=== PATIENT | male | born 1985 | race Caucasian/White ===

== ENCOUNTER 2019-11-10 07:53 | Emergency (ER) | payer BC, OTHER ==
[2019-11-10 08:27] VITALS: BP 146/96
--- NOTE | 2019-11-10 08:33 | UC ---
Throat Pain/Nasal Macario HPI - HPI Summary HPI Summary: 34-year-old male with head congestion since last evening, no fever. He did not get a flu shot in the fall. He has had diarrhea about 5 times past 24 hours. - History of Current Complaint Chief Complaint: UCGeneralIllness Stated Complaint: SINUS CONGESTION Time Seen by Provider: 11/10/19 08:14 Hx Obtained From: Patient Onset/Duration: Gradual Onset Severity: Mild Pain Intensity: 9 Cough: None Associated Signs & Symptoms: Positive: Sinus Discomfort - Allergies/Home Medications Allergies/Adverse Reactions: Allergies Allergy/AdvReac Type Severity Reaction Status Date / Time No Known Allergies Allergy Verified 11/10/19 08:27 Home Medications: Home Medications Lisinopril [Zestril] 20 mg PO DAILY 11/10/19 [History Confirmed 11/10/19] Sertraline* [Zoloft*] 10 mg PO BID 11/10/19 [History Confirmed 11/10/19] PMH/Surg Hx/FS Hx/Imm Hx Previously Healthy: Yes - Surgical History Surgical History: None - Family History Known Family History: Positive: Non-Contributory - Social History Occupation: Employed Full-time Alcohol Use: None Substance Use Type: None Smoking Status (MU): Light Every Day Tobacco Smoker Household Exposure Type: Cigarettes Review of Systems All Other Systems Reviewed And Are Negative: Yes ENT: Positive: Nasal Discharge, Sinus Congestion, Sinus Pain/Tenderness Is Patient Immunocompromised?: No Physical Exam Triage Information Reviewed: Yes Appearance: Well-Appearing, No Pain Distress, Well-Nourished Vital Signs: Initial Vital Signs Temp 97.5 F 11/10/19 08:21 Pulse 82 11/10/19 08:21 Resp 16 11/10/19 08:21 BP 146/96 11/10/19 08:21 Pulse Ox 99 11/10/19 08:21 Vital Signs Reviewed: Yes Eyes: Positive: Conjunctiva Clear ENT: Positive: Hearing grossly normal, Pharynx normal, Nasal drainage - Clear nasal coryza, TMs normal, Uvula midline Neck: Positive: Supple, Nontender, No Lymphadenopathy Respiratory: Positive: Lungs clear, Normal breath sounds, No respiratory distress, No accessory muscle use Cardiovascular: Positive: RRR, No Murmur, Pulses Normal, Brisk Capillary Refill Musculoskeletal Exam: Normal Neurological Exam: Normal Psychological Exam: Normal Skin Exam: Normal Throat Pain/Nasal Course/Dx - Course Course Of Treatment: Patient is comfortable here, nontoxic, does not appear ill. - Differential Dx/Diagnosis Provider Diagnosis: URI (upper respiratory infection) Discharge ED - Sign-Out/Discharge Documenting (check all that apply): Patient Departure All imaging exams completed and their final reports reviewed: No Studies - Discharge Plan Condition: Good Disposition: HOME Patient Education Materials: Upper Respiratory Infection (ED) Referrals: Lacy Escalante [Primary Care Provider] - Additional Instructions: Increase fluids, [id number] cold medicines as directed, follow-up with your primary care provider if no improvement or if worsening symptoms in 3 or 4 days. - Billing Disposition and Condition Condition: GOOD Disposition: Home - Attestation Statements Provider Attestation: This patient was not seen by me. I was available for consult. Chart reviewed. CHRISTIANE
== END 2019-11-10 08:43 | disposition home or self-care (01) ==
LOC: UCCORT 07:53
DX: J06.9 Acute upper respiratory infection, unspecified (principal); R19.7 Diarrhea, unspecified; F17.210 Nicotine dependence, cigarettes, uncomplicated
CPT/HCPCS: 99201; G0463